=== PATIENT | female | born 1970 | race African-American/Black ===

== ENCOUNTER 2024-12-31 06:33 | Day surgery (SDC) | payer OTHER, SELFPAY ==
[2024-12-31 13:30] LABS: Glucose - Point of Care 97 mg/dl (70-99)
== END 2024-12-31 15:48 | disposition home or self-care (01) ==
LOC: GI 06:33
PROVIDERS: ATTENDING PHYSICIAN Internal Medicine; FAMILY PHYSICIAN Family Medicine
DX: Z12.11 Encounter for screening for malignant neoplasm of colon (principal); K57.30 Diverticulosis of large intestine without perforation or abscess without bleeding; D12.3 Benign neoplasm of transverse colon; D12.8 Benign neoplasm of rectum; K63.5 Polyp of colon
CPT/HCPCS: 45385; 45380; 88305; 82962